=== PATIENT | male | born 1995 | race Caucasian/White ===

== ENCOUNTER 2020-10-01 12:52 | Emergency (ER) | payer SELFPAY ==
[~2020-10-01] VITALS: Ht 182.9 cm; Wt 83.0 kg
[2020-10-01 12:56] VITALS: BP 131/72
[2020-10-01] MEDS ORDERED: LIDOCAINE 1% MDV 20ML VIAL SC ONE (15:05)
[2020-10-01] MEDS ORDERED: NEOSPORIN OINT 0.9 GM PKT TOP ONE (15:50)
== END 2020-10-01 16:08 | disposition home or self-care (01) ==
LOC: M ED 12:52
DX: S81.811A Laceration without foreign body, right lower leg, initial encounter (principal); W26.8XXA Contact with other sharp object(s), not elsewhere classified, initial encounter; Y92.59 Other trade areas as the place of occurrence of the external cause; Y93.89 Activity, other specified; Y99.0 Civilian activity done for income or pay